=== PATIENT | female | born 1985 | race African-American/Black ===

== ENCOUNTER 2017-02-15 14:08 | Emergency (ER) | payer OTHER ==
[~2017-02-15] VITALS: Ht 172.7 cm; Wt 59.0 kg
[~2017-02-15 14:08] MED LIST: CYCLOBENZAPRINE10 MG ORAL; IBUPROFEN600 MG ORAL; NKM
[2017-02-15 14:37] VITALS: BP 155/98
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
[2017-02-15] MEDS ORDERED: IBUPROFEN600 MG ORAL (15:17)
[2017-02-15] MEDS ORDERED: SOMA350 MG PO (15:17)
[2017-02-15] MEDS ORDERED: ROBAXIN-750750 MG PO (15:17)
[2017-02-15 15:45] VITALS: BP 135/93
== END 2017-02-15 15:59 | disposition home or self-care (01) ==
LOC: EMR 15:26
DX: M62.838 Other muscle spasm (principal); M54.2 Cervicalgia; V49.40XA Driver injured in collision with unspecified motor vehicles in traffic accident, initial encounter; Y92.89 Other specified places as the place of occurrence of the external cause; Y99.8 Other external cause status
CPT/HCPCS: 99284